=== PATIENT | female | born 1995 | race Native Hawaiian/Other Pacific Islander ===

== ENCOUNTER 2022-02-08 11:03 | Outpatient (CLI) | payer OTHER | END 2022-02-08 19:20 | disposition home or self-care (01) | LOC: US 11:03 | PROVIDERS: ATTEND Nurse Practitioner | DX: R53.83 Other fatigue (principal) ==

== ENCOUNTER 2022-02-09 15:37 | Outpatient (CLI) | payer OTHER | END 2022-02-09 23:00 | disposition home or self-care (01) | LOC: US 15:37 | PROVIDERS: ATTEND Nurse Practitioner | DX: R10.9 Unspecified abdominal pain (principal) ==

== ENCOUNTER 2022-03-06 10:20 | Outpatient (CLI) | payer OTHER | END 2022-03-06 20:50 | disposition home or self-care (01) | LOC: US 10:20 | PROVIDERS: ATTEND Nurse Practitioner | DX: R10.11 Right upper quadrant pain (principal) ==